=== PATIENT | female | born 1975 | race American Indian/Alaskan Native ===

== ENCOUNTER 2019-07-08 09:28 | Emergency (ER) | payer OTHER ==
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
[2019-07-08] MEDS ORDERED: HYDROmorphone 1 MG/ML Syringe IM ONE (10:42)
== END 2019-07-08 11:14 | disposition home or self-care (01) ==
LOC: DL.ED 09:28
DX: M06.9 Rheumatoid arthritis, unspecified (principal); E03.9 Hypothyroidism, unspecified; F17.200 Nicotine dependence, unspecified, uncomplicated; Z88.0 Allergy status to penicillin; Z79.899 Other long term (current) drug therapy
CPT/HCPCS: 96372; 99283; J1170

== ENCOUNTER 2020-09-15 18:11 | Emergency (ER) | payer MEDICAID ==
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
[2020-09-15] MEDS ORDERED: LORazepam 2 MG/ML SDV IVPUSH ONE ×2 (20:20→22:44)
[2020-09-15] MEDS ORDERED: Sodium Chloride 0.9% 1,000 ML IV SCH (20:30)
[2020-09-15] MEDS ORDERED: EPINEPHrine 1:10,000 1 MG/10 ML Syringe ONE ×2 (22:17→22:18)
[2020-09-15] MEDS ORDERED: Acetaminophen 500 MG Tab PO ONE (22:45)
== END 2020-09-15 23:15 ==
LOC: DL.ED 18:11
DX: D64.9 Anemia, unspecified (principal); J45.909 Unspecified asthma, uncomplicated; K21.9 Gastro-esophageal reflux disease without esophagitis; F41.9 Anxiety disorder, unspecified; F32.9 Major depressive disorder, single episode, unspecified; E03.9 Hypothyroidism, unspecified; F17.210 Nicotine dependence, cigarettes, uncomplicated; Z88.0 Allergy status to penicillin; Z79.899 Other long term (current) drug therapy
CPT/HCPCS: 36415; 82272; 86850; 86870; 86900; 86901; 86920; 86922; 96374; 96376; 99284; 99285-25; A9270-GY; J2060; J7030

== ENCOUNTER 2022-03-05 19:03 | Inpatient (IN) | payer MEDICAID ==
[2022-03-05] MEDS ORDERED: Albuterol/Ipratropium 3.0-0.5 MG/3 ML Neb Soln NEB ONE (19:16)
[2022-03-05] MEDS ORDERED: Dexamethasone 4 MG/ML SDV IVPUSH ONE (19:17)
[2022-03-05] MEDS ORDERED: Dexamethasone 4 MG/ML SDV ONE (19:25)
[2022-03-05] MEDS ORDERED: Albuterol 0.083% 2.5 MG/3 ML Neb Soln NEB ONE (19:35)
[2022-03-05] MEDS ORDERED: Benzonatate 100 MG Cap PO ONE (19:56)
[2022-03-05] MEDS ORDERED: Acetaminophen 325 MG Tab PO ONE (19:56)
[2022-03-05 20:14] LABS: CORONAVIRUS COVID-19 NAA NEGATIVE (NEGATIVE)
[2022-03-05 20:15] LABS: ANION GAP 6.1 mEq/L (7-13); CHLORIDE,CL 103 mmol/L (98-107); SODIUM,NA 142 mmol/L (136-145)
[2022-03-05 20:20] LABS: ESTIMATED GFR > 60
[2022-03-05] MEDS ORDERED: Potassium Chloride 10 MEQ Tab.ER PO ONE (20:25)
[2022-03-05] MEDS ORDERED: Azithromycin 500 MG in Sodium Chloride 0.9% 250 ML IV ONE (20:30)
[2022-03-05] MEDS ORDERED: Ondansetron 4 MG Tab.DIS PO PRN (21:00)
[2022-03-05] MEDS ORDERED: Docusate Sodium 100 MG Cap PO PRN (21:00)
[2022-03-05] MEDS ORDERED: hydrOXYzine HCl 25 MG Tab PO PRN (21:12)
[2022-03-05] MEDS ORDERED: LORazepam 1 MG Tab PO PRN (21:12)
[2022-03-05] MEDS ORDERED: methylPREDNISolone Sodium Succinate 40 MG/1 ML SDV IVPUSH SCH (21:15)
[2022-03-05] MEDS: Sodium Chloride 0.9% 1,000 ML IV SCH (22:20)
[2022-03-05] MEDS: methylPREDNISolone Sodium Succinate 40 MG/1 ML SDV IVPUSH SCH (22:23)
[2022-03-05] MEDS: Codeine/Promethazine 10-6.25 MG/5 ML Syrup 5 ML UD Cup PO PRN (22:26)
[2022-03-05] MEDS: cefTRIAXone 1 GM in Sodium Chloride 0.9% 50 ML IV SCH (22:26)
[2022-03-06] MEDS: Albuterol/Ipratropium 3.0-0.5 MG/3 ML Neb Soln NEB SCH ×4 (00:26→18:20)
[2022-03-06] MEDS: methylPREDNISolone Sodium Succinate 40 MG/1 ML SDV IVPUSH SCH ×3 (07:34→21:13)
[2022-03-06 07:45] LABS: CHLORIDE,CL 108 mmol/L (98-107); ESTIMATED GFR > 60; SODIUM,NA 142 mmol/L (136-145)
[2022-03-06] MEDS: Citalopram 20 MG Tab PO SCH (08:57)
[2022-03-06] MEDS: Ferrous Sulfate 325 MG Tab PO SCH (08:57)
[2022-03-06] MEDS: Multivitamin Tab PO SCH (08:58)
[2022-03-06] MEDS: Acetaminophen 325 MG Tab PO PRN ×2 (08:58→19:33)
[2022-03-06] MEDS: Formoterol/Mometasone 200-5 MCG 8.8 GM Inhaler IH SCH ×2 (08:59→20:24)
[2022-03-06] MEDS: Enoxaparin 40 MG/0.4 ML Syringe SUBCUT SCH ×2 (09:00→09:03)
[2022-03-06] MEDS: Codeine/Promethazine 10-6.25 MG/5 ML Syrup 5 ML UD Cup PO PRN ×2 (09:00→19:33)
[2022-03-06] MEDS: Nicotine 14 MG/24 Hr Patch TRDERM SCH (09:01)
[2022-03-06] MEDS: Montelukast 10 MG Tab PO SCH (09:01)
[2022-03-06] MEDS ORDERED: Albuterol/Ipratropium 3.0-0.5 MG/3 ML Neb Soln ONE (10:00)
[2022-03-06] MEDS: Sodium Chloride 0.9% 1,000 ML IV SCH (14:03)
[2022-03-06] MEDS: cefTRIAXone 1 GM in Sodium Chloride 0.9% 50 ML IV SCH (20:25)
[2022-03-06] MEDS: Azithromycin 500 MG in Sodium Chloride 0.9% 250 ML IV SCH (21:13)
[2022-03-07] MEDS: Sodium Chloride 0.9% 1,000 ML IV SCH ×2 (03:08→16:38)
[2022-03-07] MEDS: methylPREDNISolone Sodium Succinate 40 MG/1 ML SDV IVPUSH SCH ×3 (05:19→22:49)
[2022-03-07] MEDS: Levothyroxine 100 MCG Tab PO SCH (05:19)
[2022-03-07] MEDS: Albuterol/Ipratropium 3.0-0.5 MG/3 ML Neb Soln NEB SCH ×4 (05:31→18:34)
[2022-03-07] MEDS ORDERED: Albuterol 0.083% 2.5 MG/3 ML Neb Soln NEB PRN (08:56)
[2022-03-07] MEDS: Formoterol/Mometasone 200-5 MCG 8.8 GM Inhaler IH SCH ×2 (09:11→20:16)
[2022-03-07] MEDS: Acetaminophen 325 MG Tab PO PRN ×2 (09:12→19:51)
[2022-03-07] MEDS: Multivitamin Tab PO SCH (09:12)
[2022-03-07] MEDS: Citalopram 20 MG Tab PO SCH (09:15)
[2022-03-07] MEDS: Codeine/Promethazine 10-6.25 MG/5 ML Syrup 5 ML UD Cup PO PRN ×2 (09:16→19:51)
[2022-03-07] MEDS: Montelukast 10 MG Tab PO SCH (09:17)
[2022-03-07] MEDS: Ferrous Sulfate 325 MG Tab PO SCH (09:17)
[2022-03-07] MEDS: Enoxaparin 40 MG/0.4 ML Syringe SUBCUT SCH (09:18)
[2022-03-07] MEDS: Nicotine 14 MG/24 Hr Patch TRDERM SCH (09:18)
[2022-03-07] MEDS: Ibuprofen 400 MG Tab PO PRN ×2 (11:57→22:49)
[2022-03-07 12:36] LABS: ANION GAP 8.8 mEq/L (7-13); CHLORIDE,CL 109 mmol/L (98-107); SODIUM,NA 145 mmol/L (136-145)
[2022-03-07 12:38] LABS: ESTIMATED GFR > 60
[2022-03-07] MEDS ORDERED: Calcium Carbonate 500 MG Tab.Chew PO PRN (13:46)
[2022-03-07] MEDS: cefTRIAXone 1 GM in Sodium Chloride 0.9% 50 ML IV SCH (20:12)
[2022-03-07] MEDS: Azithromycin 500 MG in Sodium Chloride 0.9% 250 ML IV SCH (22:48)
[2022-03-08] MEDS: Albuterol/Ipratropium 3.0-0.5 MG/3 ML Neb Soln NEB SCH ×5 (02:08→18:50)
[2022-03-08] MEDS: Codeine/Promethazine 10-6.25 MG/5 ML Syrup 5 ML UD Cup PO PRN ×3 (02:08→17:19)
[2022-03-08] MEDS: methylPREDNISolone Sodium Succinate 40 MG/1 ML SDV IVPUSH SCH ×3 (05:56→21:38)
[2022-03-08] MEDS: Levothyroxine 100 MCG Tab PO SCH (05:59)
[2022-03-08] MEDS: Acetaminophen 325 MG Tab PO PRN ×2 (06:00→17:18)
[2022-03-08 07:53] LABS: ESTIMATED GFR > 60
[2022-03-08 08:03] LABS: CHLORIDE,CL 111 mmol/L (98-107); SODIUM,NA 146 mmol/L (136-145)
[2022-03-08] MEDS: Sodium Chloride 0.9% 1,000 ML IV SCH (08:13)
[2022-03-08] MEDS: Citalopram 20 MG Tab PO SCH (08:19)
[2022-03-08] MEDS: Ferrous Sulfate 325 MG Tab PO SCH (08:19)
[2022-03-08] MEDS: Enoxaparin 40 MG/0.4 ML Syringe SUBCUT SCH (08:19)
[2022-03-08] MEDS: Multivitamin Tab PO SCH (08:19)
[2022-03-08] MEDS: Montelukast 10 MG Tab PO SCH (08:19)
[2022-03-08] MEDS: Formoterol/Mometasone 200-5 MCG 8.8 GM Inhaler IH SCH ×2 (08:20→21:38)
[2022-03-08] MEDS: Nicotine 14 MG/24 Hr Patch TRDERM SCH (08:21)
[2022-03-08] MEDS: Benzonatate 100 MG Cap PO PRN ×2 (09:47→21:51)
[2022-03-08] MEDS: Meropenem 1 GM in Sodium Chloride 0.9% 100 ML IV SCH ×2 (09:51→17:17)
[2022-03-08] MEDS ORDERED: Sodium Chloride 0.9% 1,000 ML IV SCH (12:00)
[2022-03-08] MEDS: Ibuprofen 400 MG Tab PO PRN ×2 (12:49→21:52)
[2022-03-08] MEDS ORDERED: Potassium Chloride 10 MEQ Tab.ER PO SCH (18:00)
[2022-03-09] MEDS: Acetaminophen 325 MG Tab PO PRN ×2 (00:23→12:04)
[2022-03-09] MEDS: Codeine/Promethazine 10-6.25 MG/5 ML Syrup 5 ML UD Cup PO PRN ×3 (00:25→17:49)
[2022-03-09] MEDS: Sodium Chloride 0.9% 1,000 ML IV SCH (00:27)
[2022-03-09] MEDS: Meropenem 1 GM in Sodium Chloride 0.9% 100 ML IV SCH ×3 (00:29→17:48)
[2022-03-09] MEDS: Albuterol/Ipratropium 3.0-0.5 MG/3 ML Neb Soln NEB SCH ×4 (00:30→17:49)
[2022-03-09] MEDS: methylPREDNISolone Sodium Succinate 40 MG/1 ML SDV IVPUSH SCH ×3 (05:44→21:31)
[2022-03-09] MEDS: Benzonatate 100 MG Cap PO PRN ×2 (05:50→20:08)
[2022-03-09] MEDS: Levothyroxine 100 MCG Tab PO SCH (05:50)
[2022-03-09] MEDS: Ibuprofen 400 MG Tab PO PRN ×2 (05:51→12:05)
[2022-03-09 07:33] LABS: ANION GAP 10.7 mEq/L (7-13); CHLORIDE,CL 108 mmol/L (98-107); SODIUM,NA 144 mmol/L (136-145)
[2022-03-09 07:36] LABS: ESTIMATED GFR > 60
[2022-03-09] MEDS ORDERED: Ketorolac 30 MG/ML SDV IVPUSH ONE (10:00)
[2022-03-09] MEDS: Citalopram 20 MG Tab PO SCH (10:17)
[2022-03-09] MEDS: Multivitamin Tab PO SCH (10:17)
[2022-03-09] MEDS: Montelukast 10 MG Tab PO SCH (10:17)
[2022-03-09] MEDS: Ferrous Sulfate 325 MG Tab PO SCH (10:18)
[2022-03-09] MEDS: Nicotine 14 MG/24 Hr Patch TRDERM SCH (10:18)
[2022-03-09] MEDS: Enoxaparin 40 MG/0.4 ML Syringe SUBCUT SCH (10:19)
[2022-03-09] MEDS: Formoterol/Mometasone 200-5 MCG 8.8 GM Inhaler IH SCH ×2 (10:22→21:27)
[2022-03-09] MEDS: Melatonin 3 MG Tab PO PRN (21:27)
[2022-03-09] MEDS: Acetaminophen/HYDROcodone 325-5 MG Tab PO PRN (21:27)
[2022-03-10] MEDS: Meropenem 1 GM in Sodium Chloride 0.9% 100 ML IV SCH ×3 (00:58→17:14)
[2022-03-10] MEDS: Albuterol/Ipratropium 3.0-0.5 MG/3 ML Neb Soln NEB SCH ×4 (01:04→18:15)
[2022-03-10] MEDS: Codeine/Promethazine 10-6.25 MG/5 ML Syrup 5 ML UD Cup PO PRN ×4 (01:12→22:06)
[2022-03-10] MEDS: Levothyroxine 100 MCG Tab PO SCH (05:45)
[2022-03-10] MEDS: Acetaminophen/HYDROcodone 325-5 MG Tab PO PRN ×5 (05:45→22:05)
[2022-03-10] MEDS: Benzonatate 100 MG Cap PO PRN ×2 (05:45→13:55)
[2022-03-10] MEDS: methylPREDNISolone Sodium Succinate 40 MG/1 ML SDV IVPUSH SCH ×3 (05:48→21:21)
[2022-03-10 06:54] LABS: ANION GAP 5.9 mEq/L (7-13); CHLORIDE,CL 106 mmol/L (98-107); SODIUM,NA 142 mmol/L (136-145)
[2022-03-10 06:57] LABS: ESTIMATED GFR > 60
[2022-03-10] MEDS: Montelukast 10 MG Tab PO SCH (09:35)
[2022-03-10] MEDS: Multivitamin Tab PO SCH (09:37)
[2022-03-10] MEDS: Citalopram 20 MG Tab PO SCH (09:37)
[2022-03-10] MEDS: Ferrous Sulfate 325 MG Tab PO SCH (09:37)
[2022-03-10] MEDS: Lidocaine 5% 700 MG Patch TOP SCH (09:38)
[2022-03-10] MEDS: Enoxaparin 40 MG/0.4 ML Syringe SUBCUT SCH (09:40)
[2022-03-10] MEDS: Nicotine 14 MG/24 Hr Patch TRDERM SCH (09:40)
[2022-03-10] MEDS: Formoterol/Mometasone 200-5 MCG 8.8 GM Inhaler IH SCH ×2 (09:47→21:18)
[2022-03-10] MEDS: Sodium Chloride 0.9% 10 ML Syringe FLUSH PRN (21:20)
[2022-03-10] MEDS: Ibuprofen 400 MG Tab PO PRN (21:29)
[2022-03-10] MEDS: Melatonin 3 MG Tab PO PRN (22:05)
[2022-03-11] MEDS: Meropenem 1 GM in Sodium Chloride 0.9% 100 ML IV SCH ×4 (00:36→23:37)
[2022-03-11] MEDS: Sodium Chloride 0.9% 10 ML Syringe FLUSH PRN ×6 (00:36→23:37)
[2022-03-11] MEDS: Albuterol/Ipratropium 3.0-0.5 MG/3 ML Neb Soln NEB SCH ×5 (00:43→23:36)
[2022-03-11] MEDS: Benzonatate 100 MG Cap PO PRN ×2 (00:52→09:01)
[2022-03-11] MEDS: Acetaminophen/HYDROcodone 325-5 MG Tab PO PRN ×6 (02:10→23:36)
[2022-03-11] MEDS: Levothyroxine 100 MCG Tab PO SCH (06:07)
[2022-03-11] MEDS: methylPREDNISolone Sodium Succinate 40 MG/1 ML SDV IVPUSH SCH ×2 (06:09→13:07)
[2022-03-11] MEDS: Codeine/Promethazine 10-6.25 MG/5 ML Syrup 5 ML UD Cup PO PRN ×3 (06:16→22:20)
[2022-03-11] MEDS: Multivitamin Tab PO SCH (09:00)
[2022-03-11] MEDS: Ferrous Sulfate 325 MG Tab PO SCH (09:01)
[2022-03-11] MEDS: Citalopram 20 MG Tab PO SCH (09:01)
[2022-03-11] MEDS: Montelukast 10 MG Tab PO SCH (09:01)
[2022-03-11] MEDS: Lidocaine 5% 700 MG Patch TOP SCH (09:02)
[2022-03-11] MEDS: Nicotine 14 MG/24 Hr Patch TRDERM SCH (09:03)
[2022-03-11] MEDS: Formoterol/Mometasone 200-5 MCG 8.8 GM Inhaler IH SCH ×2 (09:05→21:25)
[2022-03-11] MEDS: Enoxaparin 40 MG/0.4 ML Syringe SUBCUT SCH (09:05)
[2022-03-11] MEDS: Ibuprofen 400 MG Tab PO PRN (09:08)
[2022-03-11] MEDS ORDERED: methylPREDNISolone Sodium Succinate 40 MG/1 ML SDV IVPUSH SCH (15:45)
[2022-03-11] MEDS: Ibuprofen 800 MG Tab PO SCH ×2 (16:34→23:37)
[2022-03-11] MEDS: Melatonin 3 MG Tab PO PRN (23:37)
[2022-03-12] MEDS: Meropenem 1 GM in Sodium Chloride 0.9% 100 ML IV SCH ×2 (00:28→09:05)
[2022-03-12] MEDS: Albuterol/Ipratropium 3.0-0.5 MG/3 ML Neb Soln NEB SCH ×3 (00:28→13:37)
[2022-03-12] MEDS: Acetaminophen/HYDROcodone 325-5 MG Tab PO PRN ×5 (05:24→22:15)
[2022-03-12] MEDS: Levothyroxine 100 MCG Tab PO SCH (05:24)
[2022-03-12] MEDS: Codeine/Promethazine 10-6.25 MG/5 ML Syrup 5 ML UD Cup PO PRN ×3 (05:24→23:41)
[2022-03-12 06:57] LABS: ANION GAP 8.6 mEq/L (7-13); CHLORIDE,CL 106 mmol/L (98-107); SODIUM,NA 145 mmol/L (136-145)
[2022-03-12 07:19] LABS: ESTIMATED GFR > 60
[2022-03-12] MEDS: Lidocaine 5% 700 MG Patch TOP SCH (08:59)
[2022-03-12] MEDS: Multivitamin Tab PO SCH (09:00)
[2022-03-12] MEDS: Nicotine 14 MG/24 Hr Patch TRDERM SCH (09:00)
[2022-03-12] MEDS: Enoxaparin 40 MG/0.4 ML Syringe SUBCUT SCH (09:00)
[2022-03-12] MEDS: Formoterol/Mometasone 200-5 MCG 8.8 GM Inhaler IH SCH ×2 (09:01→22:15)
[2022-03-12] MEDS: Citalopram 20 MG Tab PO SCH (09:02)
[2022-03-12] MEDS: Montelukast 10 MG Tab PO SCH (09:02)
[2022-03-12] MEDS: Ibuprofen 800 MG Tab PO SCH ×3 (09:02→23:41)
[2022-03-12] MEDS: methylPREDNISolone Sodium Succinate 40 MG/1 ML SDV IVPUSH SCH (09:04)
[2022-03-12] MEDS: Ferrous Sulfate 325 MG Tab PO SCH (09:04)
[2022-03-12] MEDS: Sulfamethoxazole/Trimethoprim 800-160 MG Tab PO SCH ×2 (13:22→20:05)
[2022-03-12] MEDS: Benzonatate 100 MG Cap PO PRN (18:20)
[2022-03-12] MEDS: Sodium Chloride 0.9% 10 ML Syringe FLUSH PRN (20:06)
[2022-03-13] MEDS: Albuterol/Ipratropium 3.0-0.5 MG/3 ML Neb Soln NEB SCH ×5 (03:36→17:18)
[2022-03-13] MEDS: Acetaminophen/HYDROcodone 325-5 MG Tab PO PRN ×2 (03:38→08:35)
[2022-03-13] MEDS: Levothyroxine 100 MCG Tab PO SCH (06:04)
[2022-03-13 06:41] LABS: ANION GAP 7.3 mEq/L (7-13); CHLORIDE,CL 106 mmol/L (98-107); SODIUM,NA 144 mmol/L (136-145)
[2022-03-13 06:53] LABS: ESTIMATED GFR > 60
[2022-03-13] MEDS: Sulfamethoxazole/Trimethoprim 800-160 MG Tab PO SCH ×2 (08:34→20:53)
[2022-03-13] MEDS: Multivitamin Tab PO SCH (08:34)
[2022-03-13] MEDS: Ferrous Sulfate 325 MG Tab PO SCH (08:34)
[2022-03-13] MEDS: Ibuprofen 800 MG Tab PO SCH ×3 (08:34→23:24)
[2022-03-13] MEDS: Citalopram 20 MG Tab PO SCH (08:34)
[2022-03-13] MEDS: Montelukast 10 MG Tab PO SCH (08:34)
[2022-03-13] MEDS: Enoxaparin 40 MG/0.4 ML Syringe SUBCUT SCH (08:37)
[2022-03-13] MEDS: Lidocaine 5% 700 MG Patch TOP SCH (08:37)
[2022-03-13] MEDS: methylPREDNISolone Sodium Succinate 40 MG/1 ML SDV IVPUSH SCH (08:37)
[2022-03-13] MEDS: Nicotine 14 MG/24 Hr Patch TRDERM SCH (08:37)
[2022-03-13] MEDS: Formoterol/Mometasone 200-5 MCG 8.8 GM Inhaler IH SCH ×2 (08:38→20:53)
[2022-03-13] MEDS: Levofloxacin 500 MG Tab PO SCH (12:21)
[2022-03-13] MEDS: Acetaminophen/HYDROcodone 325-5 MG Tab PO SCH ×3 (12:22→23:30)
[2022-03-13] MEDS: Polyethylene Glycol 3350 Powder 17 GM Packet PO SCH (12:24)
[2022-03-13] MEDS: Codeine/Promethazine 10-6.25 MG/5 ML Syrup 5 ML UD Cup PO PRN (16:58)
[2022-03-13] MEDS: Benzonatate 100 MG Cap PO PRN (16:58)
[2022-03-14] MEDS: Albuterol/Ipratropium 3.0-0.5 MG/3 ML Neb Soln NEB SCH ×2 (01:21→09:52)
[2022-03-14] MEDS: Acetaminophen/HYDROcodone 325-5 MG Tab PO SCH ×2 (05:57→12:06)
[2022-03-14] MEDS: Levothyroxine 100 MCG Tab PO SCH (05:57)
[2022-03-14 06:37] LABS: ANION GAP 5.9 mEq/L (7-13)
[2022-03-14] MEDS: Multivitamin Tab PO SCH (09:07)
[2022-03-14] MEDS: Sulfamethoxazole/Trimethoprim 800-160 MG Tab PO SCH (09:07)
[2022-03-14] MEDS: Levofloxacin 500 MG Tab PO SCH (09:07)
[2022-03-14] MEDS: Formoterol/Mometasone 200-5 MCG 8.8 GM Inhaler IH SCH (09:07)
[2022-03-14] MEDS: Montelukast 10 MG Tab PO SCH (09:07)
[2022-03-14] MEDS: Nicotine 14 MG/24 Hr Patch TRDERM SCH (09:10)
[2022-03-14] MEDS: Enoxaparin 40 MG/0.4 ML Syringe SUBCUT SCH (09:10)
[2022-03-14] MEDS: Citalopram 20 MG Tab PO SCH (09:11)
[2022-03-14] MEDS: Ibuprofen 800 MG Tab PO SCH (09:11)
[2022-03-14] MEDS: Lidocaine 5% 700 MG Patch TOP SCH (09:12)
[2022-03-14] MEDS: Polyethylene Glycol 3350 Powder 17 GM Packet PO SCH (09:12)
[2022-03-14] MEDS: Codeine/Promethazine 10-6.25 MG/5 ML Syrup 5 ML UD Cup PO PRN (09:20)
== END 2022-03-14 13:25 | disposition home or self-care (01) | DRG 193 ==
LOC: DL.ED 19:03 → DL.MS 20:34
PROVIDERS: ADMIT Internal Medicine; ATTEND Internal Medicine
DX: J18.9 Pneumonia, unspecified organism (principal); J96.01 Acute respiratory failure with hypoxia; J45.901 Unspecified asthma with (acute) exacerbation; L40.50 Arthropathic psoriasis, unspecified; F17.210 Nicotine dependence, cigarettes, uncomplicated; K21.9 Gastro-esophageal reflux disease without esophagitis; F41.9 Anxiety disorder, unspecified; F32.A Depression, unspecified; M06.9 Rheumatoid arthritis, unspecified; Z88.0 Allergy status to penicillin; Z79.890 Hormone replacement therapy; Z20.822 Contact with and (suspected) exposure to COVID-19; F43.10 Post-traumatic stress disorder, unspecified; E87.6 Hypokalemia; E03.9 Hypothyroidism, unspecified; D64.9 Anemia, unspecified; Z79.899 Other long term (current) drug therapy
CPT/HCPCS: 0240U; 36415; 71045; 71046; 74176; 80048; 80053; 83605; 83735; 83880; 84439; 84443; 84484; 85025; 85379; 87040; 87070; 87205; 93005; 93010; 94640; 96374; 96375; 97161-GP; 97165-GO; 99284; 99285-25; A9270-GY; J0456; J0696; J1100; J1650; J1885; J2185; J2920; J3370; J3475; J3490; J7030; J7050; J7613-GY; J7620-GY

== ENCOUNTER 2023-01-21 22:17 | Emergency (ER) | payer MEDICAID ==
[2023-01-21] MEDS ORDERED: Albuterol 0.083% 2.5 MG/3 ML Neb Soln INH ONE (22:18)
[2023-01-21 23:36] LABS: ANION GAP 10.7 mEq/L (7-13); CHLORIDE,CL 103 mmol/L (98-107); SODIUM,NA 142 mmol/L (136-145)
[2023-01-21 23:38] LABS: ESTIMATED GFR 110 mL/min (>=60)
[2023-01-21] MEDS ORDERED: Albuterol/Ipratropium 3.0-0.5 MG/3 ML Neb Soln NEB ONE (23:58)
[2023-01-22] MEDS ORDERED: Albuterol 0.083% 2.5 MG/3 ML Neb Soln ONE (00:16)
== END 2023-01-22 00:44 | disposition home or self-care (01) ==
LOC: DL.ED 22:17
DX: J45.41 Moderate persistent asthma with (acute) exacerbation (principal); R60.0 Localized edema; J45.909 Unspecified asthma, uncomplicated; E03.9 Hypothyroidism, unspecified; Z88.0 Allergy status to penicillin; Z79.899 Other long term (current) drug therapy; Z20.822 Contact with and (suspected) exposure to COVID-19
CPT/HCPCS: 36415; 71045; 80053; 80307; 81003; 83735; 83880; 84484; 85025; 99284; 99285; J7613-GY; J7620-GY; U0002

== ENCOUNTER 2023-02-02 05:22 | Inpatient (IN) | payer MEDICAID ==
[2023-02-02] MEDS ORDERED: methylPREDNISolone Sodium Succinate 125 MG/2 ML SDV IVPUSH ONE (05:53)
[2023-02-02] MEDS ORDERED: Albuterol/Ipratropium 3.0-0.5 MG/3 ML Neb Soln NEB ONE ×2 (05:53→07:52)
[2023-02-02] MEDS ORDERED: Albuterol 0.083% 2.5 MG/3 ML Neb Soln NEB ONE (06:24)
[2023-02-02 06:32] LABS: BASOPHILS PERCENT AUTO 0.5 % (0.0-1.0); EOSINOPHILS PERCENT AUTO 17.2 % (1.0-3.0); HEMATOCRIT 34.8 % (37.0-47.0); HEMOGLOBIN 10.1 g/dL (12.0-16.0); LYMPHOCYTES PERCENT AUTO 13.6 % (20.5-50.1); MEAN CORPUSCULAR HEMOGLOBIN 21.4 pg (27.0-34.0); MEAN CORPUSCULAR VOLUME 73.7 fL (80-100); MONOCYTES PERCENT AUTO 7.2 % (2-8); NEUTROPHILS PERCENT AUTO 61.5 % (42.2-75.2); PLATELET COUNT,PLT 319 10^3/uL (150-450); RED BLOOD CELL COUNT 4.72 10^6/uL (4.2-5.4); WHITE BLOOD CELL COUNT,WBC 7.5 10^3/uL (5.0-10.0)
[2023-02-02] MEDS ORDERED: Magnesium Sulfate/Water 2 GM in Premix Bag 1 BAG IV ONE ×2 (06:33→06:45)
[2023-02-02 06:41] LABS: CORONAVIRUS COVID-19 NAA NEGATIVE (NEGATIVE); INFLUENZA A NAA NEGATIVE (NEGATIVE); INFLUENZA B NAA NEGATIVE (NEGATIVE); RESPIRATORY SYNCYTIAL VIR NAA NEGATIVE (NEGATIVE)
[2023-02-02 06:48] LABS: A/G RATIO 0.9; ALBUMIN 3.8 g/dL (3.4-5.0); ANION GAP 8.7 mEq/L (7-13); BILIRUBIN TOTAL 0.3 mg/dL (0.2-1.0); BUN/CREATININE RATIO 16.7 (No establ ref range); C-REACTIVE PROTEIN 2.1 mg/dL (0.0-0.9); CALCIUM 8.4 mg/dL (8.5-10.1); CREATININE 0.48 mg/dL (0.55-1.02); EST CRCL DRUG DOSING (CG) 140.9 mL/min; MAGNESIUM 1.9 mg/dL (1.8-2.4); POTASSIUM,K 3.7 mmol/L (3.5-5.1); PROTEIN TOTAL,TP 7.9 g/dL (6.4-8.2)
[2023-02-02 06:51] LABS: LACTIC ACID 0.3 mmol/L (0.4-2.0)
[2023-02-02] MEDS ORDERED: Codeine/Promethazine 10-6.25 MG/5 ML Syrup 5 ML UD Cup PO ONE (07:30)
[2023-02-02] MEDS ORDERED: Mineral Oil/Petrolatum Oint 100 GM OINT TOP PRN (11:27)
[2023-02-02] MEDS ORDERED: Albuterol 6.7 GM Inhaler INH PRN (11:30)
[2023-02-02] MEDS ORDERED: hydrOXYzine HCl 25 MG Tab PO PRN (11:30)
[2023-02-02] MEDS ORDERED: Ibuprofen 800 MG Tab PO PRN (11:30)
[2023-02-02] MEDS ORDERED: ACETAMINOPHEN PO PRN (11:30)
[2023-02-02] MEDS ORDERED: Ergocalciferol (Vitamin D2) 1.25 MG Cap PO SCH (11:30)
[2023-02-02] MEDS ORDERED: OXYCODONE HCL PO PRN (11:30)
[2023-02-02] MEDS ORDERED: Docusate Sodium 100 MG Cap PO PRN (11:32)
[2023-02-02] MEDS ORDERED: Ondansetron 4 MG/2 ML SDV IVPUSH PRN (11:32)
[2023-02-02] MEDS ORDERED: Acetaminophen/oxyCODONE 325-5 MG Tab PO PRN (12:06)
[2023-02-02] MEDS: Citalopram 20 MG Tab PO SCH (12:18)
[2023-02-02] MEDS: methylPREDNISolone Sodium Succinate 40 MG/1 ML SDV IVPUSH SCH ×2 (12:19→20:37)
[2023-02-02] MEDS: Levofloxacin/Dextrose 5%-Water 750 MG in Premix Bag 1 BAG IV SCH (12:24)
[2023-02-02] MEDS: Nicotine 14 MG/24 Hr Patch TRDERM SCH (13:04)
[2023-02-02] MEDS: Montelukast 10 MG Tab PO SCH (20:41)
[2023-02-02] MEDS: Melatonin 3 MG Tab PO SCH (20:41)
[2023-02-02] MEDS: Formoterol/Mometasone 100-5 MCG 8.8 GM Inhaler IH SCH (20:42)
[2023-02-03] MEDS: methylPREDNISolone Sodium Succinate 40 MG/1 ML SDV IVPUSH SCH ×3 (03:22→19:10)
[2023-02-03] MEDS: Levothyroxine 100 MCG Tab PO SCH (05:54)
[2023-02-03] MEDS ORDERED: cefTRIAXone 1 GM Vial IVPUSH SCH (07:00)
[2023-02-03] MEDS: Enoxaparin 40 MG/0.4 ML Syringe SUBCUT SCH (08:05)
[2023-02-03] MEDS: Multivitamin Tab PO SCH (08:05)
[2023-02-03] MEDS: Nicotine 14 MG/24 Hr Patch TRDERM SCH (08:05)
[2023-02-03] MEDS: Ferrous Sulfate 325 MG Tab PO SCH (08:06)
[2023-02-03] MEDS: Formoterol/Mometasone 100-5 MCG 8.8 GM Inhaler IH SCH ×2 (08:06→21:16)
[2023-02-03] MEDS: Albuterol/Ipratropium 3.0-0.5 MG/3 ML Neb Soln NEB PRN (08:06)
[2023-02-03] MEDS ORDERED: Non-Formulary Medication 1 Each (Sennosides [Senna] 8.6 MG Capsule) PO SCH (09:00)
[2023-02-03] MEDS: guaiFENesin/Dextromethorphan 100-10 MG/5 ML Soln 5 ML Cup PO PRN ×2 (11:44→19:09)
[2023-02-03] MEDS: Citalopram 20 MG Tab PO SCH (11:48)
[2023-02-03] MEDS: Levofloxacin/Dextrose 5%-Water 750 MG in Premix Bag 1 BAG IV SCH (11:52)
[2023-02-03] MEDS: Montelukast 10 MG Tab PO SCH (21:16)
[2023-02-03] MEDS: Melatonin 3 MG Tab PO SCH (21:16)
[2023-02-04] MEDS: methylPREDNISolone Sodium Succinate 40 MG/1 ML SDV IVPUSH SCH ×3 (03:11→19:04)
[2023-02-04] MEDS: Levothyroxine 100 MCG Tab PO SCH (05:57)
[2023-02-04] MEDS: guaiFENesin/Dextromethorphan 100-10 MG/5 ML Soln 5 ML Cup PO PRN ×3 (06:50→23:38)
[2023-02-04] MEDS: Albuterol/Ipratropium 3.0-0.5 MG/3 ML Neb Soln NEB PRN ×2 (07:48→18:09)
[2023-02-04] MEDS: Nicotine 14 MG/24 Hr Patch TRDERM SCH (08:40)
[2023-02-04] MEDS: Ferrous Sulfate 325 MG Tab PO SCH (08:41)
[2023-02-04] MEDS: Multivitamin Tab PO SCH (08:41)
[2023-02-04] MEDS: Enoxaparin 40 MG/0.4 ML Syringe SUBCUT SCH (08:41)
[2023-02-04] MEDS: Formoterol/Mometasone 100-5 MCG 8.8 GM Inhaler IH SCH ×2 (08:48→20:53)
[2023-02-04] MEDS: Levofloxacin/Dextrose 5%-Water 750 MG in Premix Bag 1 BAG IV SCH (11:57)
[2023-02-04] MEDS: Citalopram 20 MG Tab PO SCH (11:58)
[2023-02-04] MEDS: Acetaminophen 325 MG Tab PO PRN (18:04)
[2023-02-04] MEDS: Montelukast 10 MG Tab PO SCH (20:53)
[2023-02-04] MEDS: Melatonin 3 MG Tab PO SCH (23:40)
[2023-02-05] MEDS: methylPREDNISolone Sodium Succinate 40 MG/1 ML SDV IVPUSH SCH ×2 (03:57→11:47)
[2023-02-05] MEDS: Albuterol/Ipratropium 3.0-0.5 MG/3 ML Neb Soln NEB PRN (04:08)
[2023-02-05] MEDS: Levothyroxine 100 MCG Tab PO SCH ×2 (04:10→05:58)
[2023-02-05] MEDS: guaiFENesin/Dextromethorphan 100-10 MG/5 ML Soln 5 ML Cup PO PRN (05:57)
[2023-02-05] MEDS: Acetaminophen 325 MG Tab PO PRN (05:57)
[2023-02-05] MEDS: Ferrous Sulfate 325 MG Tab PO SCH (08:49)
[2023-02-05] MEDS: Multivitamin Tab PO SCH (08:49)
[2023-02-05] MEDS: Enoxaparin 40 MG/0.4 ML Syringe SUBCUT SCH (08:50)
[2023-02-05] MEDS: Nicotine 14 MG/24 Hr Patch TRDERM SCH (08:50)
[2023-02-05] MEDS: Formoterol/Mometasone 100-5 MCG 8.8 GM Inhaler IH SCH (08:53)
[2023-02-05] MEDS: Levofloxacin/Dextrose 5%-Water 750 MG in Premix Bag 1 BAG IV SCH (11:47)
== END 2023-02-05 11:30 | disposition home or self-care (01) | DRG 192 ==
LOC: DL.ED 05:22 → DL.MS 08:03 → DL.ED 08:07 → DL.MS 08:17 → UNDOADMIN 08:17
PROVIDERS: ADMIT Internal Medicine; ATTEND Internal Medicine
DX: J44.1 Chronic obstructive pulmonary disease with (acute) exacerbation (principal); D50.9 Iron deficiency anemia, unspecified; F32.A Depression, unspecified; F17.210 Nicotine dependence, cigarettes, uncomplicated; H91.90 Unspecified hearing loss, unspecified ear; K21.9 Gastro-esophageal reflux disease without esophagitis; M54.9 Dorsalgia, unspecified; Z20.822 Contact with and (suspected) exposure to COVID-19; G89.29 Other chronic pain; M06.9 Rheumatoid arthritis, unspecified; D64.9 Anemia, unspecified; E03.9 Hypothyroidism, unspecified; L40.9 Psoriasis, unspecified; M19.90 Unspecified osteoarthritis, unspecified site; Z88.0 Allergy status to penicillin; Z79.890 Hormone replacement therapy; Z79.899 Other long term (current) drug therapy; Z87.01 Personal history of pneumonia (recurrent); Z90.49 Acquired absence of other specified parts of digestive tract; Z28.9 Immunization not carried out for unspecified reason
CPT/HCPCS: 0241U; 36415; 71045; 80053; 82947; 83605; 83735; 84484; 85025; 85379; 86140; 93005; 93010; 94640; 96365; 96375; 99222; 99232; 99238; 99285; 99285-25; A9270-GY; J1650; J1956; J2920; J2930; J3475; J7613-GY; J7620-GY

== ENCOUNTER 2023-05-24 07:20 | Observation (INO) | payer MEDICAID ==
[~2023-05-24 07:20] MED LIST: Albuterol/Ipratropium 3.0-0.5 MG/3 ML Neb Soln NEB ONE; methylPREDNISolone Sodium Succinate 125 MG/2 ML SDV IVPUSH ONE
[2023-05-24] MEDS: Sodium Chloride 0.9% 10 ML Syringe FLUSH PRN ×3 (07:23→20:36)
[2023-05-24 07:28] LABS: HEMATOCRIT 33.8 % (37.0-47.0); MEAN CORPUSCULAR HEMOGLOBIN 20.7 pg (27.0-34.0); MEAN CORPUSCULAR HGB CONC 29.6 g/dL (33.0-35.0); PLATELET COUNT,PLT 391 10^3/uL (150-450); RED BLOOD CELL COUNT 4.83 10^6/uL (4.2-5.4); WHITE BLOOD CELL COUNT,WBC 7.8 10^3/uL (5.0-10.0)
[2023-05-24 07:29] LABS: BASOPHILS PERCENT AUTO 0.3 % (0.0-1.0); EOSINOPHILS PERCENT AUTO 9.3 % (1.0-3.0); LYMPHOCYTES PERCENT AUTO 15.4 % (20.5-50.1); MONOCYTES PERCENT AUTO 6.3 % (2-8); NEUTROPHILS PERCENT AUTO 68.7 % (42.2-75.2)
[2023-05-24 07:42] LABS: O2 DELIVERY DEVICE NASAL CANNULA
[2023-05-24 07:43] LABS: BASE EXCESS ARTERIAL 2 mmol/L ((-2)-(+3)); BICARBONATE,ARTERIAL 26.9 mmol/L (22-26); O2 SATURATION ARTERIAL 94 % (95-100); PCO2 ARTERIAL 47 mmHg (35-45); PH,ARTERIAL 7.38 (7.35-7.45); PO2 ARTERIAL 65 mmHg (70-100)
[2023-05-24 07:44] LABS: ALLEN TEST positive
[2023-05-24 07:46] LABS: A/G RATIO 0.8; ALANINE AMINOTRANSFERASE,ALT 13 U/L (14-59); ALBUMIN 3.5 g/dL (3.4-5.0); ALKALINE PHOSPHATASE 89 U/L (46-116); ANION GAP 10.5 mEq/L (7-13); ASPARTATE AMNIOTRANSFERASE,AST 13 U/L (15-37); BILIRUBIN TOTAL 0.4 mg/dL (0.2-1.0); BLOOD UREA NITROGEN,BUN 6 mg/dL (7-18); BUN/CREATININE RATIO 10.7 (No establ ref range); CALCIUM 8.5 mg/dL (8.5-10.1); CARBON DIOXIDE,CO2 32 mmol/L (21-32); CHLORIDE,CL 102 mmol/L (98-107); CREATININE 0.56 mg/dL (0.55-1.02); GLUCOSE RANDOM 114 mg/dL (70-99); POTASSIUM,K 3.5 mmol/L (3.5-5.1); PROTEIN TOTAL,TP 7.7 g/dL (6.4-8.2); SODIUM,NA 141 mmol/L (136-145)
[2023-05-24 07:53] LABS: EOSINOPHILS PERCENT MAN 7 % (1-3); LYMPHOCYTES PERCENT MAN 19 % (20-50); MONOCYTES PERCENT MAN 2 % (2-8); SEG NEUTROPHILS PERCENT MAN 72 % (42-75)
[2023-05-24 08:01] LABS: ESTIMATED GFR 113 mL/min (>=60)
[2023-05-24] MEDS ORDERED: Ondansetron 4 MG/2 ML SDV IVPUSH PRN (09:51)
[2023-05-24] MEDS ORDERED: Magnesium Hydroxide 400 MG/5 ML Susp 30 ML Cup PO PRN (09:58)
[2023-05-24] MEDS ORDERED: Polyethylene Glycol 3350 Powder 17 GM Packet PO PRN (09:58)
[2023-05-24] MEDS ORDERED: Sennosides/Docusate Sodium 50-8.6 MG Tab PO PRN (09:58)
[2023-05-24] MEDS ORDERED: Metoprolol Tartrate 5 MG/5 ML SDV IVPUSH PRN (09:59)
[2023-05-24] MEDS ORDERED: hydrALAZINE 20 MG/ML SDV IVPUSH PRN (09:59)
[2023-05-24] MEDS ORDERED: guaiFENesin 600 MG Tab.ER PO ONE (10:00)
[2023-05-24] MEDS ORDERED: 50% Dextrose in Water 50 ML Syringe IVPUSH PRN (10:04)
[2023-05-24] MEDS ORDERED: Glucagon,Human Recombinant 1 MG Vial IM PRN (10:04)
[2023-05-24] MEDS: Azithromycin 500 MG in Sodium Chloride 0.9% 250 ML IV SCH (11:21)
[2023-05-24] MEDS: HYDROmorphone 0.5 MG/0.5 ML Syringe IVPUSH PRN ×4 (11:24→19:01)
[2023-05-24] MEDS: Insulin Lispro 100 Units/ML 3 ML Vial SUBCUT SCH ×2 (12:31→17:19)
[2023-05-24] MEDS: Albuterol/Ipratropium 3.0-0.5 MG/3 ML Neb Soln NEB PRN (13:57)
[2023-05-24] MEDS: Acetaminophen 325 MG Tab PO PRN (14:00)
[2023-05-24] MEDS ORDERED: Albuterol 6.7 GM Inhaler INH PRN (16:59)
[2023-05-24] MEDS: Formoterol/Mometasone 200-5 MCG 8.8 GM Inhaler IH SCH (16:59)
[2023-05-24] MEDS ORDERED: Non-Formulary Medication 1 Each (Sennosides [Senna] 8.6 MG Capsule) PO PRN (16:59)
[2023-05-24] MEDS ORDERED: Acetaminophen 325 MG Tab PO PRN (16:59)
[2023-05-24] MEDS ORDERED: hydrOXYzine HCl 25 MG Tab PO PRN (16:59)
[2023-05-24] MEDS: methylPREDNISolone Sodium Succinate 125 MG/2 ML SDV IVPUSH SCH (17:38)
[2023-05-24] MEDS ORDERED: Acetaminophen/oxyCODONE 325-5 MG Tab PO PRN (20:22)
[2023-05-24] MEDS: Gabapentin 300 MG Cap PO SCH (20:34)
[2023-05-24] MEDS: Ibuprofen 600 MG Tab PO PRN (20:35)
[2023-05-24] MEDS: Montelukast 10 MG Tab PO SCH (20:35)
[2023-05-24] MEDS: guaiFENesin 600 MG Tab.ER PO SCH (20:36)
[2023-05-24] MEDS ORDERED: oxyCODONE 5 MG Tab PO PRN (20:36)
[2023-05-24] MEDS: oxyCODONE 5 MG Tab PO PRN (21:59)
[2023-05-24] MEDS: Melatonin 3 MG Tab PO SCH (22:00)
[2023-05-24] MEDS: D PO SCH (23:11)
[2023-05-25] MEDS: methylPREDNISolone Sodium Succinate 125 MG/2 ML SDV IVPUSH SCH ×4 (00:12→17:30)
[2023-05-25] MEDS: Albuterol/Ipratropium 3.0-0.5 MG/3 ML Neb Soln NEB PRN (04:32)
[2023-05-25] MEDS: guaiFENesin/Dextromethorphan 100-10 MG/5 ML Soln 5 ML Cup PO PRN (04:32)
[2023-05-25] MEDS: oxyCODONE 5 MG Tab PO PRN ×2 (04:37→10:52)
[2023-05-25] MEDS: Tiotropium Bromide 4 GM Inhalation Spray (2.5mcg/1 dose; 10 doses) INH SCH (05:54)
[2023-05-25] MEDS: Formoterol/Mometasone 200-5 MCG 8.8 GM Inhaler IH SCH ×2 (05:55→17:30)
[2023-05-25] MEDS: Levothyroxine 100 MCG Tab PO SCH (06:16)
[2023-05-25 06:32] LABS: BASOPHILS PERCENT AUTO 0.1 % (0.0-1.0); LYMPHOCYTES PERCENT AUTO 3.3 % (20.5-50.1); MEAN CORPUSCULAR HEMOGLOBIN 20.9 pg (27.0-34.0); MEAN CORPUSCULAR HGB CONC 30.3 g/dL (33.0-35.0); MEAN CORPUSCULAR VOLUME 68.9 fL (80-100); MONOCYTES PERCENT AUTO 1.1 % (2-8); NEUTROPHILS PERCENT AUTO 95.5 % (42.2-75.2); PLATELET COUNT,PLT 409 10^3/uL (150-450); RED BLOOD CELL COUNT 4.79 10^6/uL (4.2-5.4); WHITE BLOOD CELL COUNT,WBC 14.2 10^3/uL (5.0-10.0)
[2023-05-25 07:00] LABS: ALBUMIN 3.3 g/dL (3.4-5.0); ANION GAP 11.4 mEq/L (7-13); BILIRUBIN TOTAL 0.3 mg/dL (0.2-1.0); BUN/CREATININE RATIO 19.1 (No establ ref range); C-REACTIVE PROTEIN 1.1 mg/dL (0.0-0.9); CALCIUM 8.3 mg/dL (8.5-10.1); CREATININE 0.68 mg/dL (0.55-1.02); EST CRCL DRUG DOSING (CG) 95.74 mL/min; MAGNESIUM 1.7 mg/dL (1.8-2.4); POTASSIUM,K 3.4 mmol/L (3.5-5.1); PROTEIN TOTAL,TP 7.1 g/dL (6.4-8.2)
[2023-05-25 07:03] LABS: A/G RATIO 0.87
[2023-05-25] MEDS: Hydrochlorothiazide 25 MG Tab PO SCH (08:24)
[2023-05-25] MEDS: Saccharomyces Boulardii (Probiotic) 250 MG Cap PO SCH (08:24)
[2023-05-25] MEDS: guaiFENesin 600 MG Tab.ER PO SCH ×2 (08:24→21:52)
[2023-05-25] MEDS: Ferrous Sulfate 325 MG Tab PO SCH (08:24)
[2023-05-25] MEDS: Acetaminophen 325 MG Tab PO PRN (08:25)
[2023-05-25] MEDS: Multivitamin Tab PO SCH (08:25)
[2023-05-25] MEDS: Nicotine 14 MG/24 Hr Patch TRDERM SCH (08:26)
[2023-05-25] MEDS: Cholecalciferol (Vitamin D3) 25 MCG Tab PO SCH (08:26)
[2023-05-25] MEDS: Insulin Lispro 100 Units/ML 3 ML Vial SUBCUT SCH ×3 (08:27→17:22)
[2023-05-25] MEDS ORDERED: BUPRENORPHINE HCL SL SCH (09:00)
[2023-05-25] MEDS ORDERED: NALOXONE HCL SL SCH (09:00)
[2023-05-25] MEDS ORDERED: [UNRECOGNIZED DRUG - OTHER] SL SCH (09:00)
[2023-05-25] MEDS: Azithromycin 500 MG in Sodium Chloride 0.9% 250 ML IV SCH (10:01)
[2023-05-25] MEDS ORDERED: Potassium Chloride 10 MEQ Tab.ER PO ONE (10:39)
[2023-05-25] MEDS ORDERED: Magnesium Sulfate/Water 2 GM in Premix Bag 1 BAG IV ONE (10:39)
[2023-05-25] MEDS: Citalopram 20 MG Tab PO SCH (12:23)
[2023-05-25] MEDS: Pantoprazole 40 MG Tab.CR PO SCH (16:33)
[2023-05-25] MEDS: Ibuprofen 600 MG Tab PO PRN (16:38)
[2023-05-25] MEDS: Acetaminophen/oxyCODONE 325-5 MG Tab PO PRN (20:19)
[2023-05-25] MEDS: Melatonin 3 MG Tab PO SCH (21:52)
[2023-05-25] MEDS: Gabapentin 300 MG Cap PO SCH (21:52)
[2023-05-25] MEDS: D PO SCH (21:52)
[2023-05-25] MEDS: Montelukast 10 MG Tab PO SCH (21:52)
[2023-05-26] MEDS: methylPREDNISolone Sodium Succinate 125 MG/2 ML SDV IVPUSH SCH ×3 (00:22→12:08)
[2023-05-26] MEDS: Acetaminophen/oxyCODONE 325-5 MG Tab PO PRN ×3 (04:03→12:21)
[2023-05-26 06:12] LABS: BASOPHILS PERCENT AUTO 0.1 % (0.0-1.0); HEMATOCRIT 32.2 % (37.0-47.0); HEMOGLOBIN 9.5 g/dL (12.0-16.0); LYMPHOCYTES PERCENT AUTO 2.5 % (20.5-50.1); MEAN CORPUSCULAR HEMOGLOBIN 20.5 pg (27.0-34.0); MEAN CORPUSCULAR HGB CONC 29.5 g/dL (33.0-35.0); MEAN CORPUSCULAR VOLUME 69.4 fL (80-100); MONOCYTES PERCENT AUTO 1.8 % (2-8); NEUTROPHILS PERCENT AUTO 95.6 % (42.2-75.2); PLATELET COUNT,PLT 437 10^3/uL (150-450); RED BLOOD CELL COUNT 4.64 10^6/uL (4.2-5.4); WHITE BLOOD CELL COUNT,WBC 22.3 10^3/uL (5.0-10.0)
[2023-05-26] MEDS: Tiotropium Bromide 4 GM Inhalation Spray (2.5mcg/1 dose; 10 doses) INH SCH (06:13)
[2023-05-26] MEDS: Formoterol/Mometasone 200-5 MCG 8.8 GM Inhaler IH SCH (06:19)
[2023-05-26] MEDS: Pantoprazole 40 MG Tab.CR PO SCH (06:22)
[2023-05-26] MEDS: Levothyroxine 100 MCG Tab PO SCH (06:22)
[2023-05-26 06:34] LABS: ALBUMIN 3.2 g/dL (3.4-5.0); ANION GAP 10.9 mEq/L (7-13); BILIRUBIN TOTAL 0.2 mg/dL (0.2-1.0); BUN/CREATININE RATIO 28.6 (No establ ref range); C-REACTIVE PROTEIN 0.2 mg/dL (0.0-0.9); CALCIUM 8.4 mg/dL (8.5-10.1); CREATININE 0.63 mg/dL (0.55-1.02); EST CRCL DRUG DOSING (CG) 103.34 mL/min; MAGNESIUM 2.1 mg/dL (1.8-2.4); POTASSIUM,K 3.9 mmol/L (3.5-5.1)
[2023-05-26 06:40] LABS: A/G RATIO 0.84
[2023-05-26] MEDS: guaiFENesin/Dextromethorphan 100-10 MG/5 ML Soln 5 ML Cup PO PRN (07:53)
[2023-05-26] MEDS: Multivitamin Tab PO SCH (08:06)
[2023-05-26] MEDS: Saccharomyces Boulardii (Probiotic) 250 MG Cap PO SCH (08:06)
[2023-05-26] MEDS: Nicotine 14 MG/24 Hr Patch TRDERM SCH (08:06)
[2023-05-26] MEDS: Hydrochlorothiazide 25 MG Tab PO SCH (08:06)
[2023-05-26] MEDS: Insulin Lispro 100 Units/ML 3 ML Vial SUBCUT SCH ×2 (08:07→12:11)
[2023-05-26] MEDS: guaiFENesin 600 MG Tab.ER PO SCH (08:07)
[2023-05-26] MEDS: Ferrous Sulfate 325 MG Tab PO SCH (08:07)
[2023-05-26] MEDS: Cholecalciferol (Vitamin D3) 25 MCG Tab PO SCH (08:07)
[2023-05-26] MEDS: Azithromycin 500 MG in Sodium Chloride 0.9% 250 ML IV SCH (09:35)
[2023-05-26] MEDS: oxyCODONE 5 MG Tab PO PRN (10:22)
[2023-05-26] MEDS: Citalopram 20 MG Tab PO SCH (12:08)
== END 2023-05-26 14:18 | disposition home or self-care (01) ==
LOC: DL.ED 07:20 → DL.MS 08:55 → DL.ED 09:32
PROVIDERS: ADMIT Internal Medicine; ATTEND Internal Medicine
DX: J45.901 Unspecified asthma with (acute) exacerbation (principal); J96.91 Respiratory failure, unspecified with hypoxia; R73.9 Hyperglycemia, unspecified; E03.9 Hypothyroidism, unspecified; K21.9 Gastro-esophageal reflux disease without esophagitis; F32.A Depression, unspecified; F43.10 Post-traumatic stress disorder, unspecified; F41.9 Anxiety disorder, unspecified; D50.9 Iron deficiency anemia, unspecified; F12.90 Cannabis use, unspecified, uncomplicated; D72.829 Elevated white blood cell count, unspecified; E87.6 Hypokalemia; E83.42 Hypomagnesemia; Z87.891 Personal history of nicotine dependence; Z87.820 Personal history of traumatic brain injury; Z88.0 Allergy status to penicillin; Z79.890 Hormone replacement therapy; Z79.899 Other long term (current) drug therapy; Z20.822 Contact with and (suspected) exposure to COVID-19; Z76.5 Malingerer [conscious simulation]
CPT/HCPCS: 36415; 36600; 71045; 80053; 82803; 82947; 83735; 84484; 84703; 85025; 86140; 87070; 87205; 87635; 93005; 94010; 94060; 94640; 94664; 94667; 94668; 94762; 96374; 99285; A9270; J0456; J1170; J1815; J2405; J2930; J3475; J7050; 93010; 96365; 96366; 96367; 96375; 96376; 99223; 99232; 99238; 99284; G0378; J3490; J7620-GY; U0002

== ENCOUNTER 2024-05-15 22:04 | Emergency (ER) | payer MEDICAID ==
[2024-05-16 01:53] LABS: APPEARANCE,URINE CLEAR (CLEAR); BILIRUBIN,URINE NEGATIVE (NEGATIVE); COLOR,URINE YELLOW (YELLOW); GLUCOSE,URINE NEGATIVE (NEGATIVE); KETONES,URINE NEGATIVE (NEGATIVE); LEUKOCYTE ESTERASE,URINE NEGATIVE (NEGATIVE); NITRITE,URINE NEGATIVE (NEGATIVE); OCCULT BLOOD,URINE NEGATIVE (NEGATIVE); PH,URINE 7.5 (5.0-9.0); PROTEIN,URINE NEGATIVE (NEGATIVE)
[2024-05-16 01:54] LABS: BASOPHILS PERCENT AUTO 0.9 % (0.0-1.0); EOSINOPHILS PERCENT AUTO 6.7 % (1.0-3.0); HEMATOCRIT 28.1 % (37.0-47.0); HEMOGLOBIN 7.9 g/dL (12.0-16.0); MEAN CORPUSCULAR HGB CONC 28.1 g/dL (33.0-35.0); MEAN CORPUSCULAR VOLUME 71.1 fL (80-100); MONOCYTES PERCENT AUTO 8.5 % (2-8); NEUTROPHILS PERCENT AUTO 57.9 % (42.2-75.2); PLATELET COUNT,PLT 265 10^3/uL (150-450); RED BLOOD CELL COUNT 3.95 10^6/uL (4.2-5.4); WHITE BLOOD CELL COUNT,WBC 5.5 10^3/uL (5.0-10.0)
[2024-05-16 02:13] LABS: LACTIC ACID 0.7 mmol/L (0.4-2.0)
[2024-05-16 02:14] LABS: ALBUMIN 3.3 g/dL (3.4-5.0); ANION GAP 6.9 mEq/L (7-13); BILIRUBIN TOTAL 0.3 mg/dL (0.2-1.0); BUN/CREATININE RATIO 18.3 (No establ ref range); C-REACTIVE PROTEIN 1.35 ng/dL (<=0.50); CALCIUM 8.1 mg/dL (8.5-10.1); CREATININE 0.6 mg/dL (0.55-1.02); EST CRCL DRUG DOSING (CG) 107.34 mL/min; MAGNESIUM 1.7 mg/dL (1.8-2.4); POTASSIUM,K 3.9 mmol/L (3.5-5.1); PROTEIN TOTAL,TP 7.1 g/dL (6.4-8.2)
[2024-05-16 02:15] LABS: A/G RATIO 0.87
[2024-05-16] MEDS: Acetaminophen 325 MG Tab PO ONE (02:17)
[2024-05-16] MEDS: Clindamycin in 0.9 % Sod Chlor 900 MG in Premix Bag 1 BAG IV ONE (02:58)
[2024-05-16] MEDS: Magnesium Sulfate/Water 2 GM in Premix Bag 1 BAG IV ONE (03:50)
[2024-05-16] MEDS: Iopamidol 755 Mg/ML 100 ML Bottle IVPUSH ONE (04:30)
[2024-05-16] MEDS: Furosemide 40 MG/4 ML VIAL IVPUSH ONE (05:13)
[2024-05-16] MEDS: Ketorolac 30 MG/ML SDV IVPUSH ONE (05:39)
== END 2024-05-16 07:35 ==
LOC: DL.ED 22:04
DX: L03.115 Cellulitis of right lower limb (principal); L03.116 Cellulitis of left lower limb; D50.9 Iron deficiency anemia, unspecified; I11.0 Hypertensive heart disease with heart failure; I50.9 Heart failure, unspecified; E83.42 Hypomagnesemia; J44.9 Chronic obstructive pulmonary disease, unspecified; E03.9 Hypothyroidism, unspecified; F17.200 Nicotine dependence, unspecified, uncomplicated; Z79.899 Other long term (current) drug therapy; Z88.0 Allergy status to penicillin
CPT/HCPCS: 36415; 71046; 71275; 80053; 81003; 83605; 83735; 83880; 84484; 85025; 85379; 86140; 93005; 96365; 96366; 96367; 96375; 99285; A9270; J1885; J1940; J3475; J3490; Q9967

== ENCOUNTER 2024-05-27 16:17 | Emergency (ER) | payer MEDICAID ==
[2024-05-27] MEDS ORDERED: Sodium Chloride 0.9% 10 ML Syringe FLUSH PRN (16:34)
[2024-05-27 16:49] LABS: BASOPHILS PERCENT AUTO 0.8 % (0.0-1.0); EOSINOPHILS PERCENT AUTO 5.8 % (1.0-3.0); HEMATOCRIT 33.9 % (37.0-47.0); HEMOGLOBIN 9.5 g/dL (12.0-16.0); LYMPHOCYTES PERCENT AUTO 30.2 % (20.5-50.1); MEAN CORPUSCULAR HEMOGLOBIN 21.9 pg (27.0-34.0); MEAN CORPUSCULAR VOLUME 78.1 fL (80-100); MONOCYTES PERCENT AUTO 10.4 % (2-8); NEUTROPHILS PERCENT AUTO 52.8 % (42.2-75.2); PLATELET COUNT,PLT 284 10^3/uL (150-450); RED BLOOD CELL COUNT 4.34 10^6/uL (4.2-5.4); WHITE BLOOD CELL COUNT,WBC 4.8 10^3/uL (5.0-10.0)
[2024-05-27 16:58] LABS: O2 DELIVERY DEVICE ROOM AIR
[2024-05-27 17:01] LABS: PH,VENOUS 7.29 (7.31-7.41)
[2024-05-27 17:02] LABS: BICARBONATE,VENOUS 31 mmol/l (19-25); O2 SATURATION VENOUS 50.8 % (60-80); PCO2 VENOUS 65 mmHg (41-51); PO2 VENOUS 30 mmHg (35-42)
[2024-05-27 17:04] LABS: BASE EXCESS VENOUS 3.6 mmol/l ((-2)-(+3))
[2024-05-27 17:05] LABS: ALANINE AMINOTRANSFERASE,ALT 31 U/L (14-59); ALBUMIN 3.8 g/dL (3.4-5.0); ALKALINE PHOSPHATASE 91 U/L (46-116); ANION GAP 5.7 mEq/L (7-13); ASPARTATE AMNIOTRANSFERASE,AST 31 U/L (15-37); BILIRUBIN TOTAL 0.5 mg/dL (0.2-1.0); BLOOD UREA NITROGEN,BUN 17 mg/dL (7-18); BUN/CREATININE RATIO 29.8 (No establ ref range); C-REACTIVE PROTEIN 1.14 ng/dL (<=0.50); CALCIUM 8.1 mg/dL (8.5-10.1); CARBON DIOXIDE,CO2 32 mmol/L (21-32); CHLORIDE,CL 106 mmol/L (98-107); CREATININE 0.57 mg/dL (0.55-1.02); EST CRCL DRUG DOSING (CG) 112.99 mL/min; GLUCOSE RANDOM 108 mg/dL (70-99); LACTIC ACID 0.3 mmol/L (0.4-2.0); MAGNESIUM 2.1 mg/dL (1.8-2.4); POTASSIUM,K 3.7 mmol/L (3.5-5.1); PROTEIN TOTAL,TP 7.5 g/dL (6.4-8.2); SODIUM,NA 140 mmol/L (136-145); TSH ULTRASENSITIVE 25.34 uIU/mL (0.36-3.74)
[2024-05-27 17:08] LABS: ESTIMATED GFR 112 mL/min (>=60)
[2024-05-27 17:14] LABS: B-TYPE NATRIURETIC PEPTIDE,BNP 42 pg/ml (0-100)
[2024-05-27 17:17] LABS: APPEARANCE,URINE SLIGHTLY CLOUDY (CLEAR); BILIRUBIN,URINE NEGATIVE (NEGATIVE); COLOR,URINE YELLOW (YELLOW); GLUCOSE,URINE NEGATIVE (NEGATIVE); KETONES,URINE NEGATIVE (NEGATIVE); LEUKOCYTE ESTERASE,URINE NEGATIVE (NEGATIVE); NITRITE,URINE NEGATIVE (NEGATIVE); OCCULT BLOOD,URINE NEGATIVE (NEGATIVE); PH,URINE 5.5 (5.0-9.0); PROTEIN,URINE NEGATIVE (NEGATIVE); UROBILINOGEN,URINE 0.2 mg/dL (0.2-1.0)
[2024-05-27 17:21] LABS: AMPHETAMINES,URINE NEGATIVE (NEGATIVE); BARBITURATES,URINE NEGATIVE (NEGATIVE); BENZODIAZEPINE,URINE NEGATIVE (NEGATIVE); MDMA (ECSTASY), URINE NEGATIVE (NEGATIVE); METHADONE,URINE NEGATIVE (NEGATIVE); METHAMPHETAMINES,URINE NEGATIVE (NEGATIVE); OPIATES,URINE NEGATIVE (NEGATIVE); OXYCODONE,URINE NEGATIVE (NEGATIVE); PHENCYCLIDINE,URINE NEGATIVE (NEGATIVE); TCA,URINE NEGATIVE (NEGATIVE)
[2024-05-27] MEDS: Sodium Chloride 0.9% 1,000 ML IV ONE (18:04)
[2024-05-27] MEDS: Naloxone 2 MG/2 ML Syringe IVPUSH ONE (18:13)
== END 2024-05-27 18:47 ==
LOC: DL.ED 16:17
DX: R41.82 Altered mental status, unspecified (principal); E03.9 Hypothyroidism, unspecified; E87.4 Mixed disorder of acid-base balance; I10 Essential (primary) hypertension; J45.909 Unspecified asthma, uncomplicated; Z79.899 Other long term (current) drug therapy; Z88.0 Allergy status to penicillin; Z90.49 Acquired absence of other specified parts of digestive tract
CPT/HCPCS: 36415; 71045; 80053; 80305; 81003; 82140; 82803; 82947; 83605; 83735; 83880; 84145; 84443; 85025; 86140; 86788; 93005; 93010; 96374; 99285; J2310; J7030

== ENCOUNTER 2024-08-21 16:15 | Emergency (ER) | payer MEDICAID, OTHER ==
[2024-08-21] MEDS: Albuterol/Ipratropium 3.0-0.5 MG/3 ML Neb Soln NEB ONE (16:42)
[2024-08-21] MEDS: Dexamethasone 4 MG/ML SDV PO ONE (16:49)
[2024-08-21] MEDS: Take Home: Albuterol/Ipratropium 3.0-0.5 MG/3 ML Neb Soln, 4 Neb Pack NEB ONE (17:35)
[2024-08-21] MEDS: Take Home: predniSONE 20 MG, 4 Tab Pack PO ONE (17:37)
[2024-08-21] MEDS: Take Home: Azithromycin 250 MG, 2 Tab Pack PO ONE (17:37)
[2024-08-21] MEDS: Azithromycin 250 MG Tab PO ONE (17:38)
[2024-08-21] MEDS: Albuterol 0.083% 2.5 MG/3 ML Neb Soln NEB ONE (17:45)
== END 2024-08-21 17:51 | disposition home or self-care (01) ==
LOC: DL.ED 16:15
DX: J40 Bronchitis, not specified as acute or chronic (principal); I10 Essential (primary) hypertension; J44.89 Other specified chronic obstructive pulmonary disease; E03.9 Hypothyroidism, unspecified; Z90.49 Acquired absence of other specified parts of digestive tract; Z87.891 Personal history of nicotine dependence; Z88.0 Allergy status to penicillin; Z79.51 Long term (current) use of inhaled steroids; Z79.890 Hormone replacement therapy; Z79.52 Long term (current) use of systemic steroids; Z79.2 Long term (current) use of antibiotics; Z79.899 Other long term (current) drug therapy
CPT/HCPCS: 71046; 94640; 99285; A9270; J1100; J7613-GY; J7620-GY

== ENCOUNTER 2024-09-26 10:44 | Emergency (ER) | payer MEDICAID ==
[2024-09-26] MEDS: Ketorolac 30 MG/ML SDV IM ONE (11:05)
== END 2024-09-26 11:29 | disposition home or self-care (01) ==
LOC: DL.ED 10:44
DX: S09.90XA Unspecified injury of head, initial encounter (principal); I10 Essential (primary) hypertension; J44.89 Other specified chronic obstructive pulmonary disease; E03.9 Hypothyroidism, unspecified; Z90.49 Acquired absence of other specified parts of digestive tract; Z87.891 Personal history of nicotine dependence; Z88.0 Allergy status to penicillin; Z79.51 Long term (current) use of inhaled steroids; Z79.52 Long term (current) use of systemic steroids; Z79.890 Hormone replacement therapy; Z79.899 Other long term (current) drug therapy; W00.0XXA Fall on same level due to ice and snow, initial encounter
CPT/HCPCS: 96372; 99283; J1885

== ENCOUNTER 2024-09-29 13:20 | Emergency (ER) | payer MEDICAID ==
[2024-09-29] MEDS: Orphenadrine 60 MG/2 ML Inj IM ONE (14:03)
[2024-09-29] MEDS: Ketorolac 30 MG/ML SDV IM ONE (14:03)
[2024-09-29] MEDS: Albuterol/Ipratropium 3.0-0.5 MG/3 ML Neb Soln NEB ONE (14:03)
== END 2024-09-29 16:52 | disposition home or self-care (01) ==
LOC: DL.ED 13:20
DX: S39.012A Strain of muscle, fascia and tendon of lower back, initial encounter (principal); M54.42 Lumbago with sciatica, left side; M54.6 Pain in thoracic spine; J45.909 Unspecified asthma, uncomplicated; I10 Essential (primary) hypertension; J44.89 Other specified chronic obstructive pulmonary disease; E03.9 Hypothyroidism, unspecified; Z90.49 Acquired absence of other specified parts of digestive tract; Z87.891 Personal history of nicotine dependence; Z88.0 Allergy status to penicillin; Z79.51 Long term (current) use of inhaled steroids; Z79.52 Long term (current) use of systemic steroids; Z79.890 Hormone replacement therapy; Z79.899 Other long term (current) drug therapy; W00.0XXA Fall on same level due to ice and snow, initial encounter; Y99.0 Civilian activity done for income or pay
CPT/HCPCS: 71046; 72070; 72100; 96372; 99284; J1885; J2360; J7620-GY

== ENCOUNTER 2024-09-30 17:52 | Emergency (ER) | payer MEDICAID ==
[2024-09-30] MEDS: Albuterol/Ipratropium 3.0-0.5 MG/3 ML Neb Soln NEB ONE ×2 (18:37→21:51)
[2024-09-30] MEDS: methylPREDNISolone Sodium Succinate 125 MG/2 ML SDV IVPUSH ONE (19:35)
[2024-09-30 19:36] LABS: BASOPHILS PERCENT AUTO 0.5 % (0.0-1.0); EOSINOPHILS PERCENT AUTO 8.8 % (1.0-3.0); LYMPHOCYTES PERCENT AUTO 11.2 % (20.5-50.1); MEAN CORPUSCULAR HEMOGLOBIN 24.4 pg (27.0-34.0); MEAN CORPUSCULAR HGB CONC 30.8 g/dL (33.0-35.0); MEAN CORPUSCULAR VOLUME 79.3 fL (80-100); MONOCYTES PERCENT AUTO 12.2 % (2-8); NEUTROPHILS PERCENT AUTO 67.3 % (42.2-75.2); PLATELET COUNT,PLT 221 10^3/uL (150-450); RED BLOOD CELL COUNT 4.92 10^6/uL (4.2-5.4); WHITE BLOOD CELL COUNT,WBC 5.9 10^3/uL (5.0-10.0)
[2024-09-30 19:55] LABS: A/G RATIO 0.78; ALBUMIN 3.2 g/dL (3.4-5.0); ANION GAP 12.2 mEq/L (7-13); BILIRUBIN TOTAL 0.2 mg/dL (0.2-1.0); BUN/CREATININE RATIO 23.2 (No establ ref range); CREATININE 0.56 mg/dL (0.55-1.02); EST CRCL DRUG DOSING (CG) 119.47 mL/min; MAGNESIUM 1.8 mg/dL (1.8-2.4); POTASSIUM,K 4.2 mmol/L (3.5-5.1); PROTEIN TOTAL,TP 7.3 g/dL (6.4-8.2)
[2024-09-30] MEDS: Cyclobenzaprine 10 MG Tab PO ONE (22:45)
== END 2024-09-30 23:09 | disposition home or self-care (01) ==
LOC: DL.ED 17:52
DX: U07.1 COVID-19 (principal); J45.901 Unspecified asthma with (acute) exacerbation; I10 Essential (primary) hypertension; E03.9 Hypothyroidism, unspecified; Z87.891 Personal history of nicotine dependence; Z90.49 Acquired absence of other specified parts of digestive tract; Z88.0 Allergy status to penicillin; Z79.51 Long term (current) use of inhaled steroids; Z79.890 Hormone replacement therapy; Z79.899 Other long term (current) drug therapy
CPT/HCPCS: 71045; 80053; 82947; 83735; 83880; 85025; 87428; 93005; 96374; 99285; A9270; J2919; J7620-GY

== ENCOUNTER 2024-12-02 15:51 | Observation (INO) | payer MEDICAID ==
[2024-12-02] MEDS ORDERED: Sodium Chloride 0.9% 10 ML Syringe FLUSH PRN ×2 (16:01→18:33)
[2024-12-02] MEDS: methylPREDNISolone Sodium Succinate 125 MG/2 ML SDV IVPUSH ONE (16:22)
[2024-12-02] MEDS: Magnesium Sulf/Wat 2 GM/50 mL 2 GM in Premix Bag 1 BAG IV ONE ×2 (16:40→20:36)
[2024-12-02] MEDS: Albuterol/Ipratropium 3.0-0.5 MG/3 ML Neb Soln NEB ONE ×2 (16:43→17:12)
[2024-12-02] MEDS ORDERED: Albuterol/Ipratropium 3.0-0.5 MG/3 ML Neb Soln NEB PRN (18:28)
[2024-12-02] MEDS ORDERED: Ondansetron 4 MG/2 ML SDV IVPUSH PRN (18:33)
[2024-12-02] MEDS: Nicotine 7 MG/24 Hr Patch TRDERM SCH (20:06)
[2024-12-02] MEDS: LORazepam 0.5 MG Tab PO PRN (20:35)
[2024-12-02] MEDS: Azithromycin 500 MG in Sodium Chloride 0.9% 250 ML IV ONE (20:35)
[2024-12-02] MEDS: Montelukast 10 MG Tab PO SCH (20:35)
[2024-12-02] MEDS: Albuterol 6.7 GM Inhaler INH ONE (22:14)
[2024-12-02] MEDS: Citalopram 20 MG Tab PO SCH (22:14)
[2024-12-02] MEDS: Acetaminophen 325 MG Tab PO PRN (22:16)
[2024-12-02] MEDS: Heparin Sodium 5,000 Units/ML Vial SUBCUT SCH (22:17)
[2024-12-02] MEDS: methylPREDNISolone Sodium Succinate 40 MG/1 ML SDV IVPUSH SCH (22:17)
[2024-12-02] MEDS: Albuterol/Ipratropium 3.0-0.5 MG/3 ML Neb Soln NEB SCH (22:17)
[2024-12-02] MEDS: Sodium Chloride 0.9% 10 ML Syringe FLUSH SCH (22:17)
[2024-12-03] MEDS: Levothyroxine 100 MCG Tab PO SCH (05:07)
[2024-12-03] MEDS ORDERED: LORazepam 0.5 MG Tab PO PRN (11:03)
[2024-12-03] MEDS: hydrOXYzine HCl 25 MG Tab PO PRN (12:24)
[2024-12-03] MEDS: Acetaminophen 500 MG Tab PO ONE (13:20)
[2024-12-03] MEDS: Albuterol 6.7 GM Inhaler INH PRN (18:40)
[2024-12-03] MEDS: Mometasone Furoate Powder 220 MCG/Puff 14 Dose Inhaler INH SCH (20:30)
[2024-12-03] MEDS: Gabapentin 400 MG Cap PO SCH (20:43)
[2024-12-03] MEDS: Melatonin 3 MG Tab PO SCH (20:45)
[2024-12-03] MEDS: Multivitamin Tab PO SCH (20:45)
[2024-12-03] MEDS: Montelukast 10 MG Tab PO SCH (22:57)
[2024-12-04] MEDS: predniSONE 20 MG Tab PO SCH (09:33)
[2024-12-04] MEDS: Benzonatate 100 MG Cap PO ONE (09:47)
[2024-12-04] MEDS: Benzocaine/Cetylpyridinium/Menthol Lozenge MUCMEM PRN (09:48)
[2024-12-04] MEDS ORDERED: Ferrous Sulfate 325 MG Tab PO SCH (21:00)
== END 2024-12-04 17:45 | disposition home or self-care (01) ==
LOC: DL.ED 15:51 → DL.MS 18:01
PROVIDERS: ADMIT Internal Medicine; ATTEND Internal Medicine
DX: J44.1 Chronic obstructive pulmonary disease with (acute) exacerbation (principal); J96.01 Acute respiratory failure with hypoxia; I10 Essential (primary) hypertension; E03.9 Hypothyroidism, unspecified; F32.A Depression, unspecified; Z87.891 Personal history of nicotine dependence; Z79.890 Hormone replacement therapy; Z79.899 Other long term (current) drug therapy; Z88.0 Allergy status to penicillin
CPT/HCPCS: 36415; 71046; 84703; 87428; 94640; A9270; J0456; J1644; J2919; J3475; J7050; J7512; 99223; 99232; 99239

== ENCOUNTER 2025-09-01 07:22 | Emergency (ER) | payer MEDICAID ==
[2025-09-01 07:50] LABS: O2 DELIVERY DEVICE NASAL CANNULA
[2025-09-01 07:51] LABS: PLATELET COUNT,PLT 255 10^3/uL (150-450); RED BLOOD CELL COUNT 4.99 10^6/uL (4.2-5.4); WHITE BLOOD CELL COUNT,WBC 16.5 10^3/uL (5.0-10.0)
[2025-09-01 08:04] LABS: NEUTROPHILS PERCENT AUTO 83.1 % (42.2-75.2)
[2025-09-01 08:05] LABS: BASOPHILS PERCENT AUTO 0.2 % (0.0-1.0); EOSINOPHILS PERCENT AUTO 4.5 % (1.0-3.0); LYMPHOCYTES PERCENT AUTO 8.3 % (20.5-50.1); MONOCYTES PERCENT AUTO 3.9 % (2-8)
[2025-09-01 08:15] LABS: O2 SATURATION VENOUS 68.7 % (60-80); PO2 VENOUS 45 mmHg (35-42)
[2025-09-01 08:16] LABS: BASE EXCESS VENOUS 2.1 mmol/l ((-2)-(+3)); BICARBONATE,VENOUS 32 mmol/l (19-25)
[2025-09-01 08:16] LABS: A/G RATIO 0.9; ALANINE AMINOTRANSFERASE,ALT 101 U/L (14-59); ASPARTATE AMNIOTRANSFERASE,AST 142 U/L (15-37); BILIRUBIN TOTAL 0.4 mg/dL (0.2-1.0); BLOOD UREA NITROGEN,BUN 10 mg/dL (7-18); CARBON DIOXIDE,CO2 33 mmol/L (21-32); CHLORIDE,CL 104 mmol/L (98-107); CREATININE 0.76 mg/dL (0.55-1.02); ESTIMATED GFR 96 mL/min (>=60); GLUCOSE RANDOM 213 mg/dL (70-99); POTASSIUM,K 3.3 mmol/L (3.5-5.1); PROTEIN TOTAL,TP 7.1 g/dL (6.4-8.2); SODIUM,NA 144 mmol/L (136-145)
[2025-09-01 08:17] LABS: PCO2 VENOUS 75 mmHg (41-51); PH,VENOUS 7.25 (7.31-7.41)
[2025-09-01 08:18] LABS: LACTIC ACID 1.9 mmol/L (0.4-2.0)
[2025-09-01 08:40] LABS: BAND PERCENT MAN 2 %; EOSINOPHILS PERCENT MAN 3 % (1-3); LYMPHOCYTES PERCENT MAN 7 % (20-50); MONOCYTES PERCENT MAN 3 % (2-8); SEG NEUTROPHILS PERCENT MAN 85 % (42-75)
[2025-09-01] MEDS: Potassium Chloride 10 MEQ Tab.ER PO ONE (08:40)
[2025-09-01] MEDS: Iopamidol 755 Mg/ML 100 ML Bottle IVPUSH ONE (09:13)
[2025-09-01] MEDS: Heparin Sodium 5,000 Units/ML Vial IVPUSH ONE (09:41)
[2025-09-01 10:18] LABS: INR 1.0 (0.9-1.2); PTT,PARTIAL THROMBOPLSTIN TIME 26.6 SEC (22.0-34.0)
[2025-09-01] MEDS: Heparin Sodium/0.45% NaCl 25,000 UNITS/500 ML BAG IV SCH (10:20)
== END 2025-09-01 12:40 ==
LOC: DL.ED 07:22
DX: I21.4 Non-ST elevation (NSTEMI) myocardial infarction (principal); I10 Essential (primary) hypertension; J44.9 Chronic obstructive pulmonary disease, unspecified; E78.00 Pure hypercholesterolemia, unspecified; E03.9 Hypothyroidism, unspecified; Z88.0 Allergy status to penicillin; Z79.899 Other long term (current) drug therapy; Z79.890 Hormone replacement therapy
CPT/HCPCS: 36415; 71045; 71275; 80053; 82803; 83605; 83735; 83880; 84145; 84484; 85025; 85379; 85610; 85730; 86140; 87040; 87428; 93005; 93010; 96365; 96366; 96376; 99285; A9270; J1644; J7030; Q9967